=== PATIENT | female | born 1970 | race Two or more races ===

== ENCOUNTER 2019-05-22 10:24 | Emergency (ER) | payer OTHER ==
[~2019-05-22] VITALS: Ht 160 cm; Wt 52.0 kg
[2019-05-22] MEDS ORDERED: KETOROLAC 60MG/2ML VIAL IM ONE (11:15)
[2019-05-22] MEDS ORDERED: DIAZEPAM 5 MG TABLET PO ONE (11:15)
[2019-05-22 12:11] VITALS: BP 128/64
== END 2019-05-22 12:14 | disposition home or self-care (01) ==
LOC: ER 10:24
DX: M54.41 Lumbago with sciatica, right side (principal)
CPT/HCPCS: 96372; 99283; J1885

== ENCOUNTER 2019-11-30 14:40 | Emergency (ER) | payer OTHER ==
[~2019-11-30] VITALS: Ht 152.4 cm; Wt 53.0 kg
[2019-11-30 14:53] VITALS: BP 141/81
== END 2019-11-30 16:49 | disposition home or self-care (01) ==
LOC: ER 14:40
DX: H01.006 Unspecified blepharitis left eye, unspecified eyelid (principal)
CPT/HCPCS: 99282; 99283

== ENCOUNTER 2020-04-07 17:32 | Emergency (ER) | payer OTHER ==
[~2020-04-07] VITALS: Ht 157.5 cm; Wt 48.0 kg
[2020-04-07] MEDS ORDERED: IBUPROFEN 600MG TABLET PO ONE (18:15)
[2020-04-07 18:18] VITALS: BP 118/63
== END 2020-04-07 18:47 | disposition home or self-care (01) ==
LOC: EDBD 17:32 → ER 17:32
DX: H92.02 Otalgia, left ear (principal)
CPT/HCPCS: 99282